=== PATIENT | female | born 1970 | race Caucasian/White ===

== ENCOUNTER 2023-10-26 15:59 | Outpatient (REF) | payer OTHER, SELFPAY ==
[2023-10-26 19:19] LABS: HCT 40.2 % (36.0-46.0); HGB 13.2 g/dL (11.2-15.7); MCH 29.8 pg (27.0-33.0); MCHC 32.8 % (32.0-36.0); MCV 91 fL (80-95); MPV 11.6 fL (8.0-11.0); Platelet Count 383 10^3/uL (130-400); RBC 4.43 10^6/uL (3.93-5.22); RDW 14.5 % (11.7-14.6); RDW-SD 48.2 fL; WBC 6.93 10^3/uL (4.4-10.8)
[2023-10-26 19:41] LABS: Hemoglobin A1C 5.5 % (<5.7)
[2023-10-26 19:55] LABS: ALT 36 U/L (14-59); AST 23 U/L (15-37); Albumin 3.7 g/dL (3.4-5.0); Alkaline Phosphatase 101 U/L (46-116); Anion Gap 13.1 mmol/L (3-11); BUN 13 mg/dL (7-18); CO2 24.9 mmol/L (21.0-32.0); CREATININE 0.9 mg/dL (0.55-1.02); Calcium 9.7 mg/dL (8.5-10.1); Calculated LDL 80 mg/dL (<100); Chloride 106 mmol/L (98-107); Cholesterol 173 mg/dL (<200); Folate 7.9 ng/mL (8.6-20.0); Glucose 94 mg/dL (74-106); HDL Cholesterol 57 mg/dL (40-60); Potassium 3.5 mmol/L (3.5-5.1); Sodium 144 mmol/L (136-145); Total Protein 7.3 g/dL (6.4-8.2); Triglyceride 182 mg/dL (<150); Vitamin B12 656 pg/mL (193-986)
[2023-10-26 20:22] LABS: Bilirubin, Total 0.3 mg/dL (0.2-1.0)
== END 2023-10-26 16:00 | disposition home or self-care (01) ==
LOC: NCHCN 15:59
PROVIDERS: Visit Provider Nurse Practitioner Family
DX: E78.5 Hyperlipidemia, unspecified (principal); E53.9 Vitamin B deficiency, unspecified; K21.9 Gastro-esophageal reflux disease without esophagitis; E61.1 Iron deficiency; E66.8 Other obesity; Z68.37 Body mass index [BMI] 37.0-37.9, adult; R79.89 Other specified abnormal findings of blood chemistry
CPT/HCPCS: 80053; 80061; 85027; 82607; 82746; 83036

== ENCOUNTER 2025-03-27 13:09 | Outpatient (REF) | payer OTHER, SELFPAY ==
[2025-03-27 15:13] LABS: HCT 40.1 % (36.0-46.0); HGB 12.9 g/dL (11.2-15.7); MCH 29.5 pg (27.0-33.0); MCHC 32.2 % (32.0-36.0); MCV 92 fL (80-95); MPV 11.4 fL (8.0-11.0); Platelet Count 374 10^3/uL (130-400); RBC 4.38 10^6/uL (3.93-5.22); RDW 14.3 % (11.7-14.6); RDW-SD 48.5 fL; WBC 7.32 10^3/uL (4.4-10.8)
[2025-03-27 15:31] LABS: Hemoglobin A1C 5.6 % (<5.7)
[2025-03-27 16:06] LABS: ALT 31 U/L (14-59); AST 22 U/L (15-37); Albumin 3.8 g/dL (3.4-5.0); Alkaline Phosphatase 100 U/L (46-116); Anion Gap 9.0 mmol/L (3-11); BUN 18 mg/dL (7-18); Bilirubin, Total 0.2 mg/dL (0.2-1.0); CO2 26.0 mmol/L (21.0-32.0); Calcium 9.7 mg/dL (8.5-10.1); Calculated LDL 99 mg/dL (<100); Chloride 104 mmol/L (98-107); Cholesterol 193 mg/dL (<200); Estimated GFR 88.05 (mL/min/1.73m2); Ferritin 17 ng/mL (8-252); Glucose 96 mg/dL (74-106); HDL Cholesterol 52 mg/dL (>or=50); Potassium 4.6 mmol/L (3.5-5.1); Sodium 139 mmol/L (136-145); Total Protein 7.4 g/dL (6.4-8.2); Triglyceride 212 mg/dL (<150); Vitamin B12 479 pg/mL (193-986)
[2025-03-27 16:07] LABS: Folate > 20.0 ng/mL (8.6-20.0)
[2025-03-27 17:17] LABS: Iron 99 ug/dL (50-170); Total Iron Binding Capacity 392 ug/dL (250-450); Transferrin Sat 25 % (15-50)
== END 2025-03-27 13:10 | disposition home or self-care (01) ==
LOC: NCHCN 13:09
PROVIDERS: PCP Nurse Practitioner Family; Visit Provider Nurse Practitioner Family
DX: Z00.00 Encounter for general adult medical examination without abnormal findings (principal)
CPT/HCPCS: 80053; 80061; 85027; 82607; 82728; 82746; 83036; 83540; 83550